=== PATIENT | female | born 1985 | race Caucasian/White ===

== ENCOUNTER 2018-06-27 22:20 | Emergency (ER) | payer SELFPAY ==
[~2018-06-27] VITALS: Ht 172.7 cm; Wt 77.1 kg
[2018-06-27 22:25] VITALS: BP 132/62
[2018-06-27 22:59] LABS: BASO % 0 % (0-3); EOS % 0 % (0-3); HEMATOCRIT 47.1 % (36.0-47.0); LYMPH # 0.9 x10^3/uL (1.0-4.8); LYMPH % 5 % (24-48); MEAN CORPUSCULAR HEMOGLOBIN 28 pg (25-35); MEAN CORPUSCULAR HGB CONC 34 g/dL (31-37); MEAN CORPUSCULAR VOLUME 83 fL (79-100); MONO # 1.2 x10^3/uL (0.0-1.1); MONO % 6 % (0-9); NEUT # 17.1 x10^3uL (1.8-7.7); NEUT % 89 % (31-73); PLATELET COUNT 382 x10^3/uL (140-400); RED BLOOD COUNT 5.65 x10^6/uL (3.50-5.40); WHITE BLOOD COUNT 19.2 x10^3/uL (4.0-11.0)
[2018-06-27 23:23] LABS: ALBUMIN 3.8 g/dL (3.4-5.0); CALCIUM 8.8 mg/dL (8.5-10.1); CREATININE 0.8 mg/dL (0.6-1.0); GFR 83.7; MAGNESIUM 1.4 mg/dL (1.8-2.4); TOTAL BILIRUBIN 0.5 mg/dL (0.2-1.0); TOTAL PROTEIN 7.8 g/dL (6.4-8.2)
[2018-06-27 23:25] LABS: POTASSIUM 1.8 mmol/L (3.5-5.1)
[2018-06-27] MEDS ORDERED: IV NORMAL SALINE 1000ML BAG 1,000 ML IV ONE (23:30)
[2018-06-27] MEDS ORDERED: PROCHLORPERAZINE 10 MG/2 ML VIAL. IV ONE (23:30)
[2018-06-27 23:38] LABS: % BANDS 6 % (0-9); % LYMPHS 7 % (24-48); % MONOS 9 % (0-10); % SEGS 78 % (35-66); PLT ESTIMATE ADEQUATE (ADEQUATE)
--- NOTE | 2018-06-27 23:45 | PHYS DOC ---
Past Medical History Additional Past Medical Histor: hyookalemia, seizures from low potassium Alcohol Use: Rarely Drug Use: None Adult General Chief Complaint Chief Complaint: NAUSEA/VOMITING/DIARRHA HPI HPI Patient is a 32 year old female who presents to the emergency room via EMS with complaints of nasal congestion for a week. Patient states that today she started to have nausea, vomiting, and diarrhea. Patient states that she has had at least 12 episodes of vomiting at least 6 episodes of diarrhea today. Patient states she has a history of hypokalemia and that she has had seizures because her potassium has been to her before. Patient denies any seizure activity today. She denies any fever, cough, shortness of breath, dysuria, or increased urinary frequency. Patient states that she has some epigastric pain at this time. Patient was given an IV with 4 mg of Zofran and some normal saline prior to arrival. She currently rates her pain a 10 out of 10 on the pain scale and states that there are no aggravating or alleviating factors. Review of Systems Review of Systems Constitutional: Denies fever or chills [] Eyes: Denies change in visual acuity, redness, or eye pain [] HENT: Denies ear pain or sore throat, see history of present illness Respiratory: Denies cough or shortness of breath [] Cardiovascular: No additional information not addressed in HPI [] GI: See history of present illness : Denies dysuria or hematuria [] Musculoskeletal: Denies back pain or joint pain [] Integument: Denies rash or skin lesions [] Neurologic: Denies headache, focal weakness or sensory changes [] Endocrine: Denies polyuria or polydipsia [] Current Medications Current Medications Current Medications Medications (Trade) Dose Ordered Sig/Alyssa Start Time Stop Time Status Last Admin Dose Admin Magnesium Sulfate 50 ml @ 25 mls/hr 1X ONCE 06/28/18 00:00 06/28/18 00:58 DC Prochlorperazine Edisylate (Compazine) 10 mg 1X ONCE 06/27/18 23:30 06/27/18 23:31 DC 06/27/18 23:45 10 MG Sodium Chloride 1,000 ml @ 1,000 mls/hr 1X ONCE 06/27/18 23:30 06/28/18 00:29 DC 06/27/18 23:44 1,000 MLS/HR Allergies Allergies Allergies Coded Allergies Type Severity Reaction Last Updated Verified ibuprofen Allergy Severe 06/27/18 No Physical Exam Physical Exam Constitutional: Well developed, well nourished, no acute distress, non-toxic appearance. [] HENT: Normocephalic, atraumatic, bilateral external ears normal, oropharynx moist, no oral exudates, nose normal. [] Eyes: conjunctiva normal, no discharge. [] Neck: Normal range of motion, no stridor. [] Cardiovascular:Heart rate regular rhythm, no murmur [] Lungs & Thorax: Bilateral breath sounds clear to auscultation [] Abdomen: Bowel sounds normal, soft, epigastric TTP, no rebound, no guarding, no masses, no pulsatile masses. [] Skin: Warm, dry, no erythema, no rash. [] Extremities: No cyanosis, no clubbing, ROM intact, no edema. [] Neurologic: Alert and oriented X 3, normal motor function, normal sensory function, no focal deficits noted. [] Psychologic: Affect normal, judgement normal, mood normal. [] Current Patient Data Vital Signs Vital Signs Date Time Temp Pulse Resp B/P (MAP) Pulse Ox O2 Delivery O2 Flow Rate FiO2 06/27/18 22:25 97.6 115 24 132/62 (85) 100 Room Air 97.6 Lab Values Laboratory Tests Test 06/27/18 22:50 White Blood Count 19.2 x10^3/uL (4.0-11.0) H Red Blood Count 5.65 x10^6/uL (3.50-5.40) H Hemoglobin 16.0 g/dL (12.0-15.5) H Hematocrit 47.1 % (36.0-47.0) H Mean Corpuscular Volume 83 fL (79-100) Mean Corpuscular Hemoglobin 28 pg (25-35) Mean Corpuscular Hemoglobin Concent 34 g/dL (31-37) Red Cell Distribution Width 13.0 % (11.5-14.5) Platelet Count 382 x10^3/uL (140-400) Neutrophils (%) (Auto) 89 % (31-73) H Lymphocytes (%) (Auto) 5 % (24-48) L Monocytes (%) (Auto) 6 % (0-9) Eosinophils (%) (Auto) 0 % (0-3) Basophils (%) (Auto) 0 % (0-3) Neutrophils # (Auto) 17.1 x10^3uL (1.8-7.7) H Lymphocytes # (Auto) 0.9 x10^3/uL (1.0-4.8) L Monocytes # (Auto) 1.2 x10^3/uL (0.0-1.1) H Eosinophils # (Auto) 0.0 x10^3/uL (0.0-0.7) Basophils # (Auto) 0.0 x10^3/uL (0.0-0.2) Segmented Neutrophils % 78 % (35-66) H Band Neutrophils % 6 % (0-9) Lymphocytes % 7 % (24-48) L Monocytes % 9 % (0-10) Platelet Estimate Adequate (ADEQUATE) Sodium Level 140 mmol/L (136-145) Potassium Level 1.8 mmol/L (3.5-5.1) *L Chloride Level 97 mmol/L (98-107) L Carbon Dioxide Level 22 mmol/L (21-32) Anion Gap 21 (6-14) H Blood Urea Nitrogen 18 mg/dL (7-20) Creatinine 0.8 mg/dL (0.6-1.0) Estimated GFR (Cockcroft-Gault) 83.7 BUN/Creatinine Ratio 23 (6-20) H Glucose Level 143 mg/dL (70-99) H Calcium Level 8.8 mg/dL (8.5-10.1) Magnesium Level 1.4 mg/dL (1.8-2.4) L Total Bilirubin 0.5 mg/dL (0.2-1.0) Aspartate Amino Transferase (AST) 17 U/L (15-37) Alanine Aminotransferase (ALT) 23 U/L (14-59) Alkaline Phosphatase 65 U/L (46-116) Total Protein 7.8 g/dL (6.4-8.2) Albumin 3.8 g/dL (3.4-5.0) Albumin/Globulin Ratio 1.0 (1.0-1.7) Laboratory Tests 06/27/18 22:50 Laboratory Tests 06/27/18 22:50 EKG EKG [] Radiology/Procedures Radiology/Procedures [] Course & Med Decision Making Course & Med Decision Making Pertinent Labs and Imaging studies reviewed. (See chart for details) 0008- patient refused to be admitted to hospital for treatment of hypokalemia, nausea, vomiting, and diarrhea. Benefits and risks including cardiac arrhythmia and were discussed with patient who verbalized an understanding and states that she will take her prescription potassium and magnesium at home. [] Dragon Disclaimer Dragon Disclaimer This electronic medical record was generated, in whole or in part, using a voice recognition dictation system. Departure Departure Impression: Primary Impression: Left against medical advice Disposition: 07 AGAINST MEDICAL ADVICE Condition: STABLE Referrals: UNKNOWN PCP NAME (PCP) ERICA BUENO APRN Jun 27, 2018 23:45
[2018-06-28] MEDS ORDERED: MAGNESIUM SULFATE 2GM 50 ML IV ONE
[2018-06-28] MEDS ORDERED: POT25TAB PO (06:16)
== END 2018-06-28 00:10 | disposition left against medical advice (07) ==
LOC: ER 22:20
DX: R11.2 Nausea with vomiting, unspecified (principal); R10.13 Epigastric pain; R09.81 Nasal congestion; R19.7 Diarrhea, unspecified; Z88.6 Allergy status to analgesic agent
CPT/HCPCS: 36415; 80053; 83735; 85007; 85025; 96361; 96374; 99283; J0780; J7030; 99284

== ENCOUNTER 2019-03-05 13:06 | Inpatient (IN) | payer OTHER ==
[~2019-03-05] VITALS: Ht 172.7 cm; Wt 80.7 kg
[2019-03-05] VITALS (8 sets, daily range): BP systolic 94–108; BP diastolic 36–59
[~2019-03-05 13:06] MED LIST: POT25TAB PO
[2019-03-05] MEDS ORDERED: IV 1/2 NORMAL SALINE 1,000 ML IV SCH (15:04)
[2019-03-05] MEDS ORDERED: ACETAMINOPHEN 325 MG TABLET. PO PRN (15:15)
[2019-03-05] MEDS ORDERED: ZOLPIDEM 5 MG TABLET. PO PRN (15:15)
[2019-03-05] MEDS ORDERED: PROCHLORPERAZINE 10 MG/2 ML VIAL. IV PRN ×2 (15:15→16:15)
[2019-03-05] MEDS ORDERED: MORPHINE SULFATE 2 MG/ML VIAL. IV PRN ×2 (15:15→16:15)
--- NOTE | 2019-03-05 15:29 | PDOC1 ---
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 WBC 12,3, nausea but no emesis or diarrhea or fevers, K 3,2. Otherwise healthy not on blood thinners She was woken up by abd pain, RLQ 2 AM> Dw Dr jonas today, keep NPO now Past Medical History Renal/: Other (GItelman syndrome) Past Surgical History Past Surgical History: Other (breast augmentation sx) Social History Smoke: No ALCOHOL: none Drugs: None Current Medications Current Medications Current Medications Sodium Chloride 1,000 ml @ 100 mls/hr Q10H IV Last administered on 03/05/19at 15:04; Start 03/05/19 at 15:04 Ondansetron HCl (Zofran) 4 mg PRN Q6HRS PRN IV NAUSEA/VOMITING; Start 03/05/19 at 15:15 Prochlorperazine Edisylate (Compazine) 10 mg PRN Q6HRS PRN IV NAUSEA/VOMITING; Start 03/05/19 at 15:15 Oxycodone HCl (Roxicodone) 5 mg PRN Q3HRS PRN PO BREAKTHROUGH PAIN; Start 03/05/19 at 15:15 Morphine Sulfate (Morphine Sulfate) 2 mg PRN Q2HR PRN IV PAIN; Start 03/05/19 at 15:15 Acetaminophen (Tylenol) 650 mg PRN Q6HRS PRN PO Headaches, Temp > 101.5F; Start 03/05/19 at 15:15 Zolpidem Tartrate (Ambien) 5 mg PRN QHS PRN PO INSOMNIA; Start 03/05/19 at 15:15 Active Scripts Active Reported Potassium Cl 25 Meq Tab Eff (Pot Chloride/Pot Bicarb/Cit Ac) 25 Meq Tablet.eff 40 Meq PO TID Allergies Allergies: Coded Allergies: ibuprofen (Unverified Allergy, Severe, , 06/27/18) "I will ." per patient ROS Review of System as per hpi, rest 14 pt neg Physical Exam General: Alert, Oriented X3, Cooperative, No acute distress HEENT: Atraumatic, PERRLA, EOMI Lungs: Clear to auscultation, Normal air movement Heart: S1S2, RRR, no thrills, no rubs, no gallops, no murmurs Cardiovascular: S1, S2 Abdomen: Soft, Other (tenderness RLQ area, positive psoas, obturator) Rectal Exam: not examined PELVIC: Nml ext genitalia Extremities: No clubbing, No cyanosis, No edema, Normal pulses, No tenderness/swelling Skin: No rashes, No breakdown, No significant lesion Neuro: Normal gait, Normal speech, Strength at 5/5 X4 ext, Normal tone, Sensation intact, Cranial nerves 3-12 NL, Reflexes 2+ Psych/Mental Status: Mental status NL, Mood NL Vitals Vitals Vital Signs Date Time Temp Pulse Resp B/P (MAP) Pulse Ox O2 Delivery O2 Flow Rate FiO2 03/05/19 14:45 98.4 63 20 97/46 (63) 96 Room Air 98.4 VTE Prophylaxis Ordered VTE Prophylaxis Devices: Yes VTE Pharmacological Prophylaxi: Yes Assessment/Plan Assessment/Plan 1. Acute appy by CT and clinically 2. Gitelman syndrome with hypokalemia - on PO kcl 40 TID at home. she requests IV here while NPO PLAn: NPO< pain med, IVF PPI IV Kcl PO once post Op Dw Dr jonas LAbs dw RN at bedside ELYSE ESCOTO MD Mar 05, 2019 15:28
[2019-03-05] MEDS ORDERED: POTASSIUM CL 40MEQ D5-0.45NACL 1,000 ML IV SCH ×2 (15:30)
--- NOTE | 2019-03-05 15:33 | PDOC2 ---
CONSULT Date of Consult Date of Consult DATE: 03/05/19 TIME: 15:30 History of Present Illness Reason for Visit: 33 year old female reported to [facility] with RLQ pain starting earlier this am. The pain is nonradiating with no nausea or vomiting. Her evaluation there included a CT scan showing appendicitis. Past Medical History Past Medical History kidney disease Renal/: Other (GItelman syndrome) Past Surgical History Past Surgical History portacath, breast augmentation Past Surgical History: Other (breast augmentation sx) Social History No ALCOHOL: none Drugs: None Current Medications Current Medications Current Medications Sodium Chloride 1,000 ml @ 100 mls/hr Q10H IV Last administered on 03/05/19at 15:04; Start 03/05/19 at 15:04 Ondansetron HCl (Zofran) 4 mg PRN Q6HRS PRN IV NAUSEA/VOMITING; Start 03/05/19 at 15:15 Prochlorperazine Edisylate (Compazine) 10 mg PRN Q6HRS PRN IV NAUSEA/VOMITING; Start 03/05/19 at 15:15 Oxycodone HCl (Roxicodone) 5 mg PRN Q3HRS PRN PO BREAKTHROUGH PAIN; Start 03/05/19 at 15:15 Morphine Sulfate (Morphine Sulfate) 2 mg PRN Q2HR PRN IV PAIN; Start 03/05/19 at 15:15 Acetaminophen (Tylenol) 650 mg PRN Q6HRS PRN PO Headaches, Temp > 101.5F; Start 03/05/19 at 15:15 Zolpidem Tartrate (Ambien) 5 mg PRN QHS PRN PO INSOMNIA; Start 03/05/19 at 15:15 Potassium Chloride/Dextrose/ Sod Cl 1,000 ml @ 75 mls/hr [id number] IV ; Start 03/05/19 at 15:30; Status UNV Non-Formulary Medication (Pot Chloride/ Pot Bicarb/Cit Ac (Potassium Cl 25 Meq Tab Eff)) 40 meq TID PO ; Start 03/05/19 at 21:00; Status UNV Active Scripts Active Reported Potassium Cl 25 Meq Tab Eff (Pot Chloride/Pot Bicarb/Cit Ac) 25 Meq Tablet.eff 40 Meq PO TID Allergies Allergies: Coded Allergies: ibuprofen (Unverified Allergy, Severe, , 06/27/18) "I will ." per patient ROS General: No: Chills, Night Sweats, Fatigue, Malaise, Appetite, Other HEENT: No: Heacaches, Visual Changes, Hearing change, Nasal congestion, Nasal discharge, Oral lesions, Sinus pain, Sore Throat, Epistaxis, Sneezing, Snoring, Tinnitus, Vertigo, Vocal changes, Other ENDOCRINE: No: Breast Changes, Galactorrhea, Hair Pattern Changes, Hot Flashes, Malaise/lethargy, Mood Swings, Palpitations, Polydipsia/polyuria, Skin Changes, Temperature Intolerance, Unexpected Weight Changes, Other Respiratory: No: Cough, Hemoptysis, Orthopnea, Pleuritic Pain, Shortness of breath, SOB with excertion, Sputum Changes, Stridor, Tachypnea, Wheezing, Other Cardiovascular: No Chest Pain, No Palpitations, No Orthopnea, No Paroxysmal Noc. Dyspnea, No Edema, No Lt Headedness, No Other Gastrointestinal: Yes Abdominal Pain Musculoskeletal: No Gait Disturbance, No Joint Pain, No Joint Stiffness, No Joint Swelling, No Muscle Pain, No Muscular Weakness, No Pain In:, No Swelling In:, No Other Neurological: No Behavorial Changes, No Bowel/Bladder ControlChng, No Confusion, No Dizziness, No Gait Disturbance, No Headaches, No Impaired Coord/balance, No Memory Loss, No Numbness/Tingling, No Seizures, No Speech Problems, No Tremors, No Visual Changes, No Weakness, No Other Skin: No Dry Skin, No Eczema, No Hair Changes, No Lumps, No Mole Changes, No Mottling, No Nail Changes, No Pruritus, No Rash, No Skin Lesion Changes, No Other, No Acne Physical Exam General: Alert, Oriented X3, Cooperative HEENT: Atraumatic, PERRLA Lungs: Clear to auscultation Heart: Regular rate Abdomen: Soft (tender RLQ) Extremities: No clubbing, No cyanosis Skin: No rashes Neuro: Normal gait Psych/Mental Status: Mental status NL Vitals VITALS Vital Signs Date Time Temp Pulse Resp B/P (MAP) Pulse Ox O2 Delivery O2 Flow Rate FiO2 03/05/19 14:45 98.4 63 20 97/46 (63) 96 Room Air 98.4 Assessment/Plan Assessment/Plan RLQ pain, suspect acute appendicitis, recommend lap appy. The details of surgery were discussed with the patient. She understands and would like to proceed. TU PERSAUD MD Mar 05, 2019 15:33
--- NOTE | 2019-03-05 15:42 | NUR ---
Patient requests to get flu shot before discharge.
[2019-03-05] MEDS ORDERED: FLU VAX QS 2019-20 (36MOS+)/PF 0.5 ML SYRINGE. VAX IM ONE (15:45)
[2019-03-05] MEDS: POTASSIUM CL 40MEQ D5-0.45NACL 1,000 ML IV SCH (15:50)
[2019-03-05] MEDS ORDERED: ONDANSETRON PF 4 MG/2 ML VIAL. ONE (16:01)
[2019-03-05] MEDS ORDERED: LIDOCAINE 2% PF 5 ML VIAL. ONE (16:02)
[2019-03-05] MEDS ORDERED: PROPOFOL 20 ML IV ONE ×2 (16:02→17:23)
[2019-03-05] MEDS ORDERED: IV RINGERS,LACTATED 1000ML 1,000 ML IV SCH (16:05)
[2019-03-05] MEDS ORDERED: ONDANSETRON PF 4 MG/2 ML VIAL. IV PRN (16:15)
[2019-03-05] MEDS ORDERED: HYDROmorphone 2 MG/ML VIAL IV PRN (16:15)
[2019-03-05] MEDS ORDERED: fentaNYL PF VIAL 100 MCG/2 ML VIAL IV PRN (16:15)
[2019-03-05] MEDS: ONDANSETRON PF 4 MG/2 ML VIAL. IV PRN (16:18)
[2019-03-05] MEDS ORDERED: BUPIVACAINE MPF 0.5% 30 ML VIAL. ONE ×2 (16:24→18:31)
[2019-03-05] MEDS ORDERED: SUCCINYLCHOLINE 200 MG/10 ML VIAL. ONE (16:26)
[2019-03-05] MEDS ORDERED: ROCURONIUM 50 MG/5 ML VIAL. ONE (16:59)
[2019-03-05] MEDS ORDERED: fentaNYL PF VIAL 100 MCG/2 ML VIAL ONE (17:14)
[2019-03-05] MEDS ORDERED: PHENYLEPHRINE in 0.9% NACL PF 1 MG/10 ML SYRINGE. IV ONE (17:23)
[2019-03-05] MEDS ORDERED: NEOSTIGMINE METHYLSULFATE 5 MG/5 ML SYRINGE. ONE (17:23)
[2019-03-05] MEDS ORDERED: GLYCOPYRROLATE 1 MG/5 ML VIAL. ONE (17:23)
[2019-03-05] MEDS ORDERED: SEVOFLURANE 61 TO 120 MINUTES. IH ONE (17:47)
[2019-03-05] MEDS ORDERED: oxyCODONE/APAP 5/325 1 TAB TABLET PO PRN (18:00)
--- NOTE | 2019-03-05 18:01 | PDOC4 ---
Operative Note Operative Note Preoperative Diagnosis: Acute Appendicitis Postoperative Diagnosis: Same Procedure: Laparoscopic appendectomy Surgeon: Amadou Anesthesia: Gen. EBL: 20 mL Specimen: Appendix to pathology Drains: None Complications: None Indication: The patient is a 33-year-old female who reported to the emergency department with abdominal pain. The evaluation is consistent with acute appendicitis. The patient was offered surgical treatment with a laparoscopic appendectomy. The risks of surgery were discussed which include bleeding, infection, visceral injury, pain, anesthetic risk, potential need for additional surgery or procedure. The patient understands and would like to proceed. Description: The patient was taken to the operating room and placed supine on the operating table. Gen. anesthesia was performed. The abdomen was prepped with ChloraPrep and draped in a standard surgical manner. A supraumbilical incision was made through which a veress needle was inserted and a pneumoperitoneum was created. A visualized 5 mm trocar was inserted and the laparoscope was intr oduced. In the left lower quadrant a 5 mm trocar was inserted. In the suprapubic region a 12 mm trocar was inserted. The appendix was identified and located in a retrocecal position. The distal portion of the appendix appeared inflamed consistent with acute appendicitis. There was no clear evidence of perforation or periappendiceal abscess. The mesoappendix was bluntly from the appendix. The mesoappendix was controlled using several clips and it was divided. The appendix was then amputated off the cecum using an Endo NADJA 45 stapling device. The appendix was then placed in an endoscopic bag and extracted at the suprapubic incision site. The fascia there was closed with 0 Vicryl and infiltrated with half percent Marcaine with epinephrine. The RLQ was visualized and the staple line appeared well intact and hemostasis was good. No other abnormalities were identified grossly. The remaining ports were removed and the pneumoperitoneum was relieved. The skin at all incision sites was closed with 4- 0 Monocryl. Steri-Strips and dressings were applied. The patient tolerated the procedure well and was sent to the recovery room in stable condition. At the end of the case all counts were correct. TU PERSAUD MD Mar 05, 2019 18:01
[2019-03-05] MEDS: fentaNYL PF VIAL 100 MCG/2 ML VIAL IV PRN ×2 (18:11→18:27)
[2019-03-05] MEDS ORDERED: DEXAMETHASONE SOD PHOS 20 MG/5 ML VIAL. ONE (18:31)
[2019-03-05] MEDS ORDERED: LIDOCAINE 1% PF 2 ML VIAL. ONE (18:31)
--- NOTE | 2019-03-05 19:15 | NUR ---
Patient arrived to unit via bed from PACU. Patient A&O, afebrile, VSS with moderate c/o pain upon return to unit. Patient eager to eat, this nurse explained current full liquid diet to patient and plans to advance diet as tolerated, patient verbalized understanding. Patient now resting in bed, call light within reach and family at bedside, will continue to monitor.
[2019-03-05] MEDS: POTASSIUM CHLORIDE 20 MEQ TABLET.ER. PO SCH (20:10)
[2019-03-05] MEDS: oxyCODONE IR 5 MG TABLET PO PRN (20:11)
[2019-03-05] MEDS: oxyCODONE/APAP 5/325 1 TAB TABLET PO PRN (22:18)
[2019-03-06 03:00] VITALS: BP 86/46
[2019-03-06 05:14] LABS: PROTHROMBIN TIME PATIENT 13.8 SEC (11.7-14.0)
[2019-03-06 05:18] LABS: BASO % 0 % (0-3); EOS % 0 % (0-3); HEMATOCRIT 39.3 % (36.0-47.0); HEMOGLOBIN 14.2 g/dL (12.0-15.5); LYMPH # 0.8 x10^3/uL (1.0-4.8); LYMPH % 8 % (24-48); MEAN CORPUSCULAR HEMOGLOBIN 31 pg (25-35); MEAN CORPUSCULAR HGB CONC 36 g/dL (31-37); MEAN CORPUSCULAR VOLUME 84 fL (79-100); MONO # 0.3 x10^3/uL (0.0-1.1); MONO % 3 % (0-9); NEUT # 9.4 x10^3/uL (1.8-7.7); NEUT % 89 % (31-73); PLATELET COUNT 325 x10^3/uL (140-400); RED BLOOD COUNT 4.65 x10^6/uL (3.50-5.40); RED CELL DISTRIBUTION WIDTH 12.8 % (11.5-14.5); WHITE BLOOD COUNT 10.6 x10^3/uL (4.0-11.0)
[2019-03-06 05:22] LABS: CREATININE 0.6 mg/dL (0.6-1.0); GFR 115.9
[2019-03-06 05:26] LABS: POTASSIUM 2.4 mmol/L (3.5-5.1)
[2019-03-06] MEDS ORDERED: POTASSIUM CHLORIDE 20 MEQ TABLET.ER. PO ONE ×3 (05:45→16:00)
[2019-03-06] MEDS: POTASSIUM CL 40MEQ D5-0.45NACL 1,000 ML IV SCH (06:10)
[2019-03-06 07:00] VITALS: BP 86/36
[2019-03-06] MEDS: POTASSIUM CHLORIDE 20 MEQ TABLET.ER. PO SCH ×3 (07:38→15:46)
[2019-03-06] MEDS: oxyCODONE/APAP 5/325 1 TAB TABLET PO PRN ×3 (07:44→17:40)
[2019-03-06] MEDS: ONDANSETRON PF 4 MG/2 ML VIAL. IV PRN ×2 (07:46→14:38)
--- NOTE | 2019-03-06 09:01 | PDOC ---
LUIS GAMEZ [employer] 03/06/19 0901: SURGICAL PROGRESS NOTE Subjective tolerating diet urinating pain managed Vital Signs Vital Signs Date Time Temp Pulse Resp B/P (MAP) Pulse Ox O2 Delivery O2 Flow Rate FiO2 03/06/19 07:44 16 Room Air 03/06/19 07:00 98.0 20 86/36 (53) 94 98.0 03/05/19 19:35 98.0 I&O Intake and Output 03/06/19 07:00 Intake Total 2010 ml Output Total 70 ml Balance 1940 ml Intake Oral 480 ml IV Total 1530 ml Output Urine Total 50 ml Estimated Blood Loss 20 ml # Voids 2 General: Alert, Oriented X3, Cooperative, No acute distress Abdomen: Soft, Other (lap dressings dry ) Labs Laboratory Tests Test 03/06/19 04:00 White Blood Count 10.6 x10^3/uL (4.0-11.0) Red Blood Count 4.65 x10^6/uL (3.50-5.40) Hemoglobin 14.2 g/dL (12.0-15.5) Hematocrit 39.3 % (36.0-47.0) Mean Corpuscular Volume 84 fL (79-100) Mean Corpuscular Hemoglobin 31 pg (25-35) Mean Corpuscular Hemoglobin Concent 36 g/dL (31-37) Red Cell Distribution Width 12.8 % (11.5-14.5) Platelet Count 325 x10^3/uL (140-400) Neutrophils (%) (Auto) 89 % (31-73) Lymphocytes (%) (Auto) 8 % (24-48) Monocytes (%) (Auto) 3 % (0-9) Eosinophils (%) (Auto) 0 % (0-3) Basophils (%) (Auto) 0 % (0-3) Neutrophils # (Auto) 9.4 x10^3/uL (1.8-7.7) Lymphocytes # (Auto) 0.8 x10^3/uL (1.0-4.8) Monocytes # (Auto) 0.3 x10^3/uL (0.0-1.1) Eosinophils # (Auto) 0.0 x10^3/uL (0.0-0.7) Basophils # (Auto) 0.0 x10^3/uL (0.0-0.2) Prothrombin Time 13.8 SEC (11.7-14.0) Prothromb Time International Ratio 1.1 (0.8-1.1) Sodium Level 141 mmol/L (136-145) Potassium Level 2.4 mmol/L (3.5-5.1) Chloride Level 101 mmol/L (98-107) Carbon Dioxide Level 31 mmol/L (21-32) Anion Gap 9 (6-14) Blood Urea Nitrogen 7 mg/dL (7-20) Creatinine 0.6 mg/dL (0.6-1.0) Estimated GFR (Cockcroft-Gault) 115.9 Glucose Level 161 mg/dL (70-99) Calcium Level 9.0 mg/dL (8.5-10.1) Laboratory Tests Test 03/06/19 04:00 White Blood Count 10.6 x10^3/uL (4.0-11.0) Red Blood Count 4.65 x10^6/uL (3.50-5.40) Hemoglobin 14.2 g/dL (12.0-15.5) Hematocrit 39.3 % (36.0-47.0) Mean Corpuscular Volume 84 fL (79-100) Mean Corpuscular Hemoglobin 31 pg (25-35) Mean Corpuscular Hemoglobin Concent 36 g/dL (31-37) Red Cell Distribution Width 12.8 % (11.5-14.5) Platelet Count 325 x10^3/uL (140-400) Neutrophils (%) (Auto) 89 % (31-73) Lymphocytes (%) (Auto) 8 % (24-48) Monocytes (%) (Auto) 3 % (0-9) Eosinophils (%) (Auto) 0 % (0-3) Basophils (%) (Auto) 0 % (0-3) Neutrophils # (Auto) 9.4 x10^3/uL (1.8-7.7) Lymphocytes # (Auto) 0.8 x10^3/uL (1.0-4.8) Monocytes # (Auto) 0.3 x10^3/uL (0.0-1.1) Eosinophils # (Auto) 0.0 x10^3/uL (0.0-0.7) Basophils # (Auto) 0.0 x10^3/uL (0.0-0.2) Prothrombin Time 13.8 SEC (11.7-14.0) Prothromb Time International Ratio 1.1 (0.8-1.1) Sodium Level 141 mmol/L (136-145) Potassium Level 2.4 mmol/L (3.5-5.1) Chloride Level 101 mmol/L (98-107) Carbon Dioxide Level 31 mmol/L (21-32) Anion Gap 9 (6-14) Blood Urea Nitrogen 7 mg/dL (7-20) Creatinine 0.6 mg/dL (0.6-1.0) Estimated GFR (Cockcroft-Gault) 115.9 Glucose Level 161 mg/dL (70-99) Calcium Level 9.0 mg/dL (8.5-10.1) Problem List s/p appy ok to dc home when medically stable--K 2.4 this AM--as per [facility] pain script electronically sent TU PERSAUD MD 03/06/19 0923: SURGICAL PROGRESS NOTE Assessment/Plan Agree with above LUIS GAMEZ [employer] Mar 06, 2019 09:01 TU PERSAUD MD Mar 06, 2019 09:23
[2019-03-06] MEDS ORDERED: OXYC1TAB15 PO (09:03)
--- NOTE | 2019-03-06 09:54 | PDOC ---
PROGRESS NOTES History of Present Illness History of Present Illness VTE Prophylaxis Ordered VTE Prophylaxis Devices: Yes VTE Pharmacological Prophylaxi: Yes Assessment/Plan Assessment/Plan 1. 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 3. SEVERE Hypokalemia PLAn: reg diet < pain med, IVF PPI IV Kcl PO once post Op oral k 40 meq now 28 min pt exam, chart review, > 50% of time spent with exam, chart review, pt care coordination Vitals Vitals Vital Signs Date Time Temp Pulse Resp B/P (MAP) Pulse Ox O2 Delivery O2 Flow Rate FiO2 03/06/19 09:01 16 Room Air 03/06/19 07:00 98.0 20 86/36 (53) 94 98.0 03/05/19 19:35 98.0 Physical Exam General: Alert, Oriented X3, Cooperative, No acute distress Heart: Regular rate, Normal S1, No murmurs Abdomen: Soft, Other (lap dressings dry ) Extremities: No clubbing, No cyanosis Skin: No rashes Labs LABS Laboratory Tests Test 03/06/19 04:00 White Blood Count 10.6 x10^3/uL (4.0-11.0) Red Blood Count 4.65 x10^6/uL (3.50-5.40) Hemoglobin 14.2 g/dL (12.0-15.5) Hematocrit 39.3 % (36.0-47.0) Mean Corpuscular Volume 84 fL (79-100) Mean Corpuscular Hemoglobin 31 pg (25-35) Mean Corpuscular Hemoglobin Concent 36 g/dL (31-37) Red Cell Distribution Width 12.8 % (11.5-14.5) Platelet Count 325 x10^3/uL (140-400) Neutrophils (%) (Auto) 89 % (31-73) Lymphocytes (%) (Auto) 8 % (24-48) Monocytes (%) (Auto) 3 % (0-9) Eosinophils (%) (Auto) 0 % (0-3) Basophils (%) (Auto) 0 % (0-3) Neutrophils # (Auto) 9.4 x10^3/uL (1.8-7.7) Lymphocytes # (Auto) 0.8 x10^3/uL (1.0-4.8) Monocytes # (Auto) 0.3 x10^3/uL (0.0-1.1) Eosinophils # (Auto) 0.0 x10^3/uL (0.0-0.7) Basophils # (Auto) 0.0 x10^3/uL (0.0-0.2) Prothrombin Time 13.8 SEC (11.7-14.0) Prothromb Time International Ratio 1.1 (0.8-1.1) Sodium Level 141 mmol/L (136-145) Potassium Level 2.4 mmol/L (3.5-5.1) Chloride Level 101 mmol/L (98-107) Carbon Dioxide Level 31 mmol/L (21-32) Anion Gap 9 (6-14) Blood Urea Nitrogen 7 mg/dL (7-20) Creatinine 0.6 mg/dL (0.6-1.0) Estimated GFR (Cockcroft-Gault) 115.9 Glucose Level 161 mg/dL (70-99) Calcium Level 9.0 mg/dL (8.5-10.1) Comment Review of Relevant I have reviewed the following items neida (where applicable) has been applied. Labs Laboratory Tests Test 03/06/19 04:00 White Blood Count 10.6 x10^3/uL (4.0-11.0) Red Blood Count 4.65 x10^6/uL (3.50-5.40) Hemoglobin 14.2 g/dL (12.0-15.5) Hematocrit 39.3 % (36.0-47.0) Mean Corpuscular Volume 84 fL (79-100) Mean Corpuscular Hemoglobin 31 pg (25-35) Mean Corpuscular Hemoglobin Concent 36 g/dL (31-37) Red Cell Distribution Width 12.8 % (11.5-14.5) Platelet Count 325 x10^3/uL (140-400) Neutrophils (%) (Auto) 89 % (31-73) Lymphocytes (%) (Auto) 8 % (24-48) Monocytes (%) (Auto) 3 % (0-9) Eosinophils (%) (Auto) 0 % (0-3) Basophils (%) (Auto) 0 % (0-3) Neutrophils # (Auto) 9.4 x10^3/uL (1.8-7.7) Lymphocytes # (Auto) 0.8 x10^3/uL (1.0-4.8) Monocytes # (Auto) 0.3 x10^3/uL (0.0-1.1) Eosinophils # (Auto) 0.0 x10^3/uL (0.0-0.7) Basophils # (Auto) 0.0 x10^3/uL (0.0-0.2) Prothrombin Time 13.8 SEC (11.7-14.0) Prothromb Time International Ratio 1.1 (0.8-1.1) Sodium Level 141 mmol/L (136-145) Potassium Level 2.4 mmol/L (3.5-5.1) Chloride Level 101 mmol/L (98-107) Carbon Dioxide Level 31 mmol/L (21-32) Anion Gap 9 (6-14) Blood Urea Nitrogen 7 mg/dL (7-20) Creatinine 0.6 mg/dL (0.6-1.0) Estimated GFR (Cockcroft-Gault) 115.9 Glucose Level 161 mg/dL (70-99) Calcium Level 9.0 mg/dL (8.5-10.1) Laboratory Tests Test 03/06/19 04:00 White Blood Count 10.6 x10^3/uL (4.0-11.0) Red Blood Count 4.65 x10^6/uL (3.50-5.40) Hemoglobin 14.2 g/dL (12.0-15.5) Hematocrit 39.3 % (36.0-47.0) Mean Corpuscular Volume 84 fL (79-100) Mean Corpuscular Hemoglobin 31 pg (25-35) Mean Corpuscular Hemoglobin Concent 36 g/dL (31-37) Red Cell Distribution Width 12.8 % (11.5-14.5) Platelet Count 325 x10^3/uL (140-400) Neutrophils (%) (Auto) 89 % (31-73) Lymphocytes (%) (Auto) 8 % (24-48) Monocytes (%) (Auto) 3 % (0-9) Eosinophils (%) (Auto) 0 % (0-3) Basophils (%) (Auto) 0 % (0-3) Neutrophils # (Auto) 9.4 x10^3/uL (1.8-7.7) Lymphocytes # (Auto) 0.8 x10^3/uL (1.0-4.8) Monocytes # (Auto) 0.3 x10^3/uL (0.0-1.1) Eosinophils # (Auto) 0.0 x10^3/uL (0.0-0.7) Basophils # (Auto) 0.0 x10^3/uL (0.0-0.2) Prothrombin Time 13.8 SEC (11.7-14.0) Prothromb Time International Ratio 1.1 (0.8-1.1) Sodium Level 141 mmol/L (136-145) Potassium Level 2.4 mmol/L (3.5-5.1) Chloride Level 101 mmol/L (98-107) Carbon Dioxide Level 31 mmol/L (21-32) Anion Gap 9 (6-14) Blood Urea Nitrogen 7 mg/dL (7-20) Creatinine 0.6 mg/dL (0.6-1.0) Estimated GFR (Cockcroft-Gault) 115.9 Glucose Level 161 mg/dL (70-99) Calcium Level 9.0 mg/dL (8.5-10.1) Medications Current Medications Sodium Chloride 1,000 ml @ 100 mls/hr Q10H IV Last administered on 03/05/19at 15:04; Start 03/05/19 at 15:04; Stop 03/05/19 at 15:31; Status DC Ondansetron HCl (Zofran) 4 mg PRN Q6HRS PRN IV NAUSEA/VOMITING Last administered on 03/06/19at 07:46; Start 03/05/19 at 15:15 Prochlorperazine Edisylate (Compazine) 10 mg PRN Q6HRS PRN IV NAUSEA/VOMITING; Start 03/05/19 at 15:15 Oxycodone HCl (Roxicodone) 5 mg PRN Q3HRS PRN PO BREAKTHROUGH PAIN Last administered on 03/05/19at 20:11; Start 03/05/19 at 15:15 Morphine Sulfate (Morphine Sulfate) 2 mg PRN Q2HR PRN IV PAIN Last administered on 03/05/19at 15:52; Start 03/05/19 at 15:15 Acetaminophen (Tylenol) 650 mg PRN Q6HRS PRN PO Headaches, Temp > 101.5F; Start 03/05/19 at 15:15 Zolpidem Tartrate (Ambien) 5 mg PRN QHS PRN PO INSOMNIA; Start 03/05/19 at 15:15 Potassium Chloride/Dextrose/ Sod Cl 1,000 ml @ 75 mls/hr [id number] IV ; Start 03/05/19 at 15:30; Stop 03/05/19 at 15:33; Status DC Potassium Chloride (Klor-Con) 40 meq BIDWMEALS PO Last administered on 03/06/19at 07:38; Start 03/05/19 at 17:00 Potassium Chloride/Dextrose/ Sod Cl 1,000 ml @ 75 mls/hr [id number] IV ; Start 03/05/19 at 15:30; Status UNV Potassium Chloride/Dextrose/ Sod Cl 1,000 ml @ 75 mls/hr [id number] IV Last administered on 03/06/19at 06:10; Start 03/05/19 at 16:00 Influenza Virus Vaccine Quadrival (Afluria Quad 2019-20 (3yr Up) Syringe) 0.5 ml ONCE ONCE VAX IM ; Start 03/05/19 at 15:45; Stop 03/05/19 at 15:46; Status DC Ondansetron HCl (Zofran) 4 mg STK-MED ONCE .ROUTE ; Start 03/05/19 at 16:01; Stop 03/05/19 at 16:02; Status DC Lidocaine HCl (Lidocaine Pf 2% Vial) 5 ml STK-MED ONCE .ROUTE ; Start 03/05/19 at 16:02; Stop 03/05/19 at 16:02; Status DC Propofol 20 ml @ As Directed STK-MED ONCE IV ; Start 03/05/19 at 16:02; Stop 03/05/19 at 16:02; Status DC Ondansetron HCl (Zofran) 4 mg PRN Q6HRS PRN IV NAUSEA/VOMITING; Start 03/05/19 at 16:15; Stop 03/06/19 at 16:14 Fentanyl Citrate (Fentanyl 2ml Vial) 25 mcg PRN Q5MIN PRN IV MILD PAIN 1-3 Last administered on 03/05/19at 18:27; Start 03/05/19 at 16:15; Stop 03/06/19 at 16:14 Fentanyl Citrate (Fentanyl 2ml Vial) 50 mcg PRN Q5MIN PRN IV MODERATE TO SEVERE PAIN; Start 03/05/19 at 16:15; Stop 03/06/19 at 16:14 Morphine Sulfate (Morphine Sulfate) 1 mg PRN Q10MIN PRN IV SEVERE PAIN 7-10; Start 03/05/19 at 16:15; Stop 03/06/19 at 16:14 Ringer's Solution 1,000 ml @ 30 mls/hr Q24H IV Last administered on 03/05/19at 16:47; Start 03/05/19 at 16:05; Stop 03/06/19 at 04:16; Status DC Hydromorphone HCl (Dilaudid) 0.5 mg PRN Q10MIN PRN IV SEV PAIN, Second choice; Start 03/05/19 at 16:15; Stop 03/06/19 at 16:14 Prochlorperazine Edisylate (Compazine) 5 mg PACU PRN PRN IV NAUSEA, MRX1 Last administered on 03/05/19at 18:14; Start 03/05/19 at 16:15; Stop 03/06/19 at 16:14 Bupivacaine HCl (Sensorcaine Mpf 0.5%) 30 ml STK-MED ONCE .ROUTE Last administered on 03/05/19at 17:50; Start 03/05/19 at 16:24; Stop 03/05/19 at 16:25; Status DC Succinylcholine Chloride (Anectine) 200 mg STK-MED ONCE .ROUTE ; Start 03/05/19 at 16:26; Stop 03/05/19 at 16:27; Status DC Rocuronium [place] (Zemuron) 50 mg STK-MED ONCE .ROUTE ; Start 03/05/19 at 16:59; Stop 03/05/19 at 17:00; Status DC Fentanyl Citrate (Fentanyl 2ml Vial) 100 mcg STK-MED ONCE .ROUTE ; Start 03/05/19 at 17:14; Stop 03/05/19 at 17:15; Status DC Neostigmine Methylsulfate (Neostigmine Methylsulfate) 5 mg STK-MED ONCE .ROUTE ; Start 03/05/19 at 17:23; Stop 03/05/19 at 17:23; Status DC Glycopyrrolate (Robinul) 1 mg STK-MED ONCE .ROUTE ; Start 03/05/19 at 17:23; Stop 03/05/19 at 17:23; Status DC Propofol 20 ml @ As Directed STK-MED ONCE IV ; Start 03/05/19 at 17:23; Stop 03/05/19 at 17:23; Status DC Phenylephrine HCl (PHENYLEPHRINE in 0.9% NACL PF) 1 mg STK-MED ONCE IV ; Start 03/05/19 at 17:23; Stop 03/05/19 at 17:23; Status DC Sevoflurane (Ultane) 60 ml STK-MED ONCE IH ; Start 03/05/19 at 17:47; Stop 03/05/19 at 17:48; Status DC Oxycodone/ Acetaminophen (Percocet 5/325) 1 tab PRN Q4HRS PRN PO MILD PAIN 1-3; Start 03/05/19 at 18:00 Oxycodone/ Acetaminophen (Percocet 5/325) 2 tab PRN Q4HRS PRN PO MODERATE PAIN, SEVERE PAIN Last administered on 03/06/19at 07:44; Start 03/05/19 at 18:15 Dexamethasone Sodium Phosphate (Decadron) 20 mg STK-MED ONCE .ROUTE ; Start 03/05/19 at 18:31; Stop 03/05/19 at 18:31; Status DC Bupivacaine HCl (Sensorcaine Mpf 0.5%) 30 ml STK-MED ONCE .ROUTE ; Start 03/05/19 at 18:31; Stop 03/05/19 at 18:32; Status DC Lidocaine HCl (Xylocaine-Mpf 1% 2ml Vial) 2 ml STK-MED ONCE .ROUTE ; Start 03/05/19 at 18:31; Stop 03/05/19 at 18:32; Status DC Potassium Chloride (Klor-Con) 40 meq 1X ONCE PO Last administered on 03/06/19at 06:06; Start 03/06/19 at 05:45; Stop 03/06/19 at 05:46; Status DC Active Scripts Active Percocet 5-325 Mg Tablet (Oxycodone/Acetaminophen) 1 Each Tablet 1 Tab PO PRN Q4HRS PRN Reported Potassium Cl 25 Meq Tab Eff (Pot Chloride/Pot Bicarb/Cit Ac) 25 Meq Tablet.eff 40 Meq PO TID Vitals/I & O Vital Sign - Last 24 Hours 03/05/19 03/05/19 03/05/19 03/05/19 14:45 14:50 15:52 16:30 Temp 98.4 98.4 98.4 98.4 Pulse 63 77 Resp 20 16 20 B/P (MAP) 97/46 (63) 102/50 Pulse Ox 96 100 O2 Delivery Room Air Room Air Room Air Room Air 03/05/19 03/05/19 03/05/19 03/05/19 18:03 18:11 18:18 18:27 Temp 97.8 97.8 97.8 97.8 Pulse 60 64 Resp 16 16 16 B/P (MAP) 89/45 100/42 Pulse Ox 100 100 95 95 O2 Delivery Room Air Room Air Room Air Room Air 03/05/19 03/05/19 03/05/19 03/05/19 18:33 18:48 18:48 19:02 Temp 98.8 98.8 Pulse 51 58 61 58 Resp 16 16 16 18 B/P (MAP) 94/36 97/49 87/37 93/52 Pulse Ox 99 96 97 96 O2 Delivery Nasal Cannula Room Air Room Air O2 Flow Rate 2 2 2 03/05/19 03/05/19 03/05/19 03/05/19 19:20 19:35 20:05 20:10 Temp 98.9 98.7 98.8 98.9 98.7 98.8 Pulse 61 65 76 Resp 18 18 18 B/P (MAP) 97/53 (68) 98/58 (71) 108/36 (60) Pulse Ox 96 95 O2 Delivery Room Air Room Air Room Air Room Air O2 Flow Rate 98.0 03/05/19 03/05/19 03/05/19 03/05/19 20:11 20:35 21:05 21:20 Temp 98.7 98.5 98.7 98.5 Pulse 70 60 Resp 18 20 20 14 B/P (MAP) 99/59 (72) 95/41 (59) Pulse Ox 95 95 O2 Delivery Room Air Room Air Room Air Room Air 03/05/19 03/05/19 03/05/19 03/05/19 21:35 22:18 23:13 23:20 Temp 98.5 98.2 98.5 98.2 Pulse 66 57 Resp 20 16 18 16 B/P (MAP) 105/54 (71) 94/52 (66) Pulse Ox 96 95 O2 Delivery Room Air Room Air Room Air Room Air 03/06/19 03/06/19 03/06/19 03/06/19 03:00 07:00 07:44 09:01 Temp 97.9 98.0 97.9 98.0 Pulse 40 20 Resp 16 18 16 16 B/P (MAP) 86/46 (59) 86/36 (53) Pulse Ox 95 94 O2 Delivery Room Air Room Air Room Air Room Air Intake and Output 03/05/19 03/05/19 03/06/19 15:00 23:00 07:00 Intake Total 1530 ml 480 ml Output Total 70 ml Balance 1460 ml 480 ml KAREN SON MD Mar 06, 2019 09:54
[2019-03-06 10:06] LABS: % BANDS 2 % (0-9); % LYMPHS 12 % (24-48); % MONOS 1 % (0-10); % SEGS 85 % (35-66); PLT ESTIMATE ADEQUATE (ADEQUATE)
--- NOTE | 2019-03-06 10:23 | NUR ---
SW following for discharge planning. Chart reviewed, discussed with RN. Pt had surgery yesterday, per RN no SW needs. RN anticipates discharge home with self care today (03/06/19). SW will continue to follow should any discharge needs arise.
[2019-03-06 11:00] VITALS: BP 88/43
[2019-03-06] MEDS ORDERED: oxyCODONE/APAP 5/325 1 TAB TABLET PO PRN (13:15)
[2019-03-06] MEDS: oxyCODONE IR 5 MG TABLET PO PRN (14:39)
[2019-03-06 15:00] VITALS: BP 86/30
--- NOTE | 2019-03-06 18:00 | PDOC3 ---
Discharge Summary Date of Admission: Mar 05, 2019 Date of Discharge: Mar 06, 2019 Follow-Up: 3-5 days Admitting Diagnosis comment: discharge dx Assessment/Plan 1. 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 3. SEVERE Hypokalemia now 3.2 PLAn: reg diet < pain med, IVF PPI IV Kcl PO once post Op oral k 40 meq now 28 min pt exam, chart review d/c planning , > 50% of time spent with exam, chart review, pt care coordination Vitals Vitals Vital Signs Date Time Temp Pulse Resp B/P (MAP) Pulse Ox O2 Delivery O2 Flow Rate FiO2 03/06/19 09:01 16 Room Air 03/06/19 07:00 98.0 20 86/36 (53) 94 98.0 03/05/19 19:35 98.0 Physical Exam General: Alert, Oriented X3, Cooperative, No acute distress Heart: Regular rate, Normal S1, No murmurs Abdomen: Soft, Other (lap dressings dry ) Extremities: No clubbing, No cyanosis Skin: No rashes Brief Hospital Course Ms. Boyle is a 33 old [sex] who presented with [ acute appendicitis] CONDITION AT DISCHARGE: Improved Discharge Medications Current Medications Sodium Chloride 1,000 ml @ 100 mls/hr Q10H IV Last administered on 03/05/19at 15:04; Start 03/05/19 at 15:04; Stop 03/05/19 at 15:31; Status DC Ondansetron HCl (Zofran) 4 mg PRN Q6HRS PRN IV NAUSEA/VOMITING Last administered on 03/06/19at 14:38; Start 03/05/19 at 15:15 Prochlorperazine Edisylate (Compazine) 10 mg PRN Q6HRS PRN IV NAUSEA/VOMITING; Start 03/05/19 at 15:15 Oxycodone HCl (Roxicodone) 5 mg PRN Q3HRS PRN PO BREAKTHROUGH PAIN Last administered on 03/06/19at 14:39; Start 03/05/19 at 15:15 Morphine Sulfate (Morphine Sulfate) 2 mg PRN Q2HR PRN IV PAIN Last administered on 03/05/19at 15:52; Start 03/05/19 at 15:15 Acetaminophen (Tylenol) 650 mg PRN Q6HRS PRN PO Headaches, Temp > 101.5F; Start 03/05/19 at 15:15 Zolpidem Tartrate (Ambien) 5 mg PRN QHS PRN PO INSOMNIA; Start 03/05/19 at 15:15 Potassium Chloride/Dextrose/ Sod Cl 1,000 ml @ 75 mls/hr [id number] IV ; Start 03/05/19 at 15:30; Stop 03/05/19 at 15:33; Status DC Potassium Chloride (Klor-Con) 40 meq BIDWMEALS PO Last administered on 03/06/19at 07:38; Start 03/05/19 at 17:00; Stop 03/06/19 at 12:35; Status DC Potassium Chloride/Dextrose/ Sod Cl 1,000 ml @ 75 mls/hr [id number] IV ; Start 03/05/19 at 15:30; Status UNV Potassium Chloride/Dextrose/ Sod Cl 1,000 ml @ 75 mls/hr [id number] IV Last administered on 03/06/19at 06:10; Start 03/05/19 at 16:00 Influenza Virus Vaccine Quadrival (Afluria Quad 2019-20 (3yr Up) Syringe) 0.5 ml ONCE ONCE VAX IM Last administered on 03/06/19at 10:55; Start 03/05/19 at 15:45; Stop 03/05/19 at 15:46; Status DC Ondansetron HCl (Zofran) 4 mg STK-MED ONCE .ROUTE ; Start 03/05/19 at 16:01; Stop 03/05/19 at 16:02; Status DC Lidocaine HCl (Lidocaine Pf 2% Vial) 5 ml STK-MED ONCE .ROUTE ; Start 03/05/19 at 16:02; Stop 03/05/19 at 16:02; Status DC Propofol 20 ml @ As Directed STK-MED ONCE IV ; Start 03/05/19 at 16:02; Stop 03/05/19 at 16:02; Status DC Ondansetron HCl (Zofran) 4 mg PRN Q6HRS PRN IV NAUSEA/VOMITING; Start 03/05/19 at 16:15; Stop 03/06/19 at 16:14; Status DC Fentanyl Citrate (Fentanyl 2ml Vial) 25 mcg PRN Q5MIN PRN IV MILD PAIN 1-3 Last administered on 03/05/19at 18:27; Start 03/05/19 at 16:15; Stop 03/06/19 at 16:14; Status DC Fentanyl Citrate (Fentanyl 2ml Vial) 50 mcg PRN Q5MIN PRN IV MODERATE TO SEVERE PAIN; Start 03/05/19 at 16:15; Stop 03/06/19 at 16:14; Status DC Morphine Sulfate (Morphine Sulfate) 1 mg PRN Q10MIN PRN IV SEVERE PAIN 7-10; Start 03/05/19 at 16:15; Stop 03/06/19 at 16:14; Status DC Ringer's Solution 1,000 ml @ 30 mls/hr Q24H IV Last administered on 03/05/19at 16:47; Start 03/05/19 at 16:05; Stop 03/06/19 at 04:16; Status DC Hydromorphone HCl (Dilaudid) 0.5 mg PRN Q10MIN PRN IV SEV PAIN, Second choice; Start 03/05/19 at 16:15; Stop 03/06/19 at 16:14; Status DC Prochlorperazine Edisylate (Compazine) 5 mg PACU PRN PRN IV NAUSEA, MRX1 Last administered on 03/05/19at 18:14; Start 03/05/19 at 16:15; Stop 03/06/19 at 16:14; Status DC Bupivacaine HCl (Sensorcaine Mpf 0.5%) 30 ml STK-MED ONCE .ROUTE Last administered on 03/05/19at 17:50; Start 03/05/19 at 16:24; Stop 03/05/19 at 16:25; Status DC Succinylcholine Chloride (Anectine) 200 mg STK-MED ONCE .ROUTE ; Start 03/05/19 at 16:26; Stop 03/05/19 at 16:27; Status DC Rocuronium [place] (Zemuron) 50 mg STK-MED ONCE .ROUTE ; Start 03/05/19 at 16:59; Stop 03/05/19 at 17:00; Status DC Fentanyl Citrate (Fentanyl 2ml Vial) 100 mcg STK-MED ONCE .ROUTE ; Start 03/05/19 at 17:14; Stop 03/05/19 at 17:15; Status DC Neostigmine Methylsulfate (Neostigmine Methylsulfate) 5 mg STK-MED ONCE .ROUTE ; Start 03/05/19 at 17:23; Stop 03/05/19 at 17:23; Status DC Glycopyrrolate (Robinul) 1 mg STK-MED ONCE .ROUTE ; Start 03/05/19 at 17:23; Stop 03/05/19 at 17:23; Status DC Propofol 20 ml @ As Directed STK-MED ONCE IV ; Start 03/05/19 at 17:23; Stop 03/05/19 at 17:23; Status DC Phenylephrine HCl (PHENYLEPHRINE in 0.9% NACL PF) 1 mg STK-MED ONCE IV ; Start 03/05/19 at 17:23; Stop 03/05/19 at 17:23; Status DC Sevoflurane (Ultane) 60 ml STK-MED ONCE IH ; Start 03/05/19 at 17:47; Stop 03/05/19 at 17:48; Status DC Oxycodone/ Acetaminophen (Percocet 5/325) 1 tab PRN Q4HRS PRN PO MILD PAIN 1-3; Start 03/05/19 at 18:00 Oxycodone/ Acetaminophen (Percocet 5/325) 2 tab PRN Q4HRS PRN PO MODERATE PAIN, SEVERE PAIN Last administered on 03/06/19at 17:40; Start 03/05/19 at 18:15 Dexamethasone Sodium Phosphate (Decadron) 20 mg STK-MED ONCE .ROUTE ; Start 03/05/19 at 18:31; Stop 03/05/19 at 18:31; Status DC Bupivacaine HCl (Sensorcaine Mpf 0.5%) 30 ml STK-MED ONCE .ROUTE ; Start 03/05/19 at 18:31; Stop 03/05/19 at 18:32; Status DC Lidocaine HCl (Xylocaine-Mpf 1% 2ml Vial) 2 ml STK-MED ONCE .ROUTE ; Start 03/05/19 at 18:31; Stop 03/05/19 at 18:32; Status DC Potassium Chloride (Klor-Con) 40 meq 1X ONCE PO Last administered on 03/06/19at 06:06; Start 03/06/19 at 05:45; Stop 03/06/19 at 05:46; Status DC Potassium Chloride (Klor-Con) 40 meq TIDWMEALS PO Last administered on 03/06/19at 15:46; Start 03/06/19 at 12:45 Oxycodone/ Acetaminophen (Percocet 5/325) 1 tab PRN Q4HRS PRN PO MILD PAIN 1-3; Start 03/06/19 at 13:15; Status UNV Potassium Chloride (Klor-Con) 40 meq 1X ONCE PO Last administered on 03/06/19at 13:45; Start 03/06/19 at 14:00; Stop 03/06/19 at 14:01; Status DC Potassium Chloride (Klor-Con) 20 meq 1X ONCE PO Last administered on 03/06/19at 15:46; Start 03/06/19 at 16:00; Stop 03/06/19 at 16:01; Status DC Active Scripts Active Percocet 5-325 Mg Tablet (Oxycodone/Acetaminophen) 1 Each Tablet 1 Tab PO PRN Q4HRS PRN Reported Potassium Cl 25 Meq Tab Eff (Pot Chloride/Pot Bicarb/Cit Ac) 25 Meq Tablet.eff 40 Meq PO TID Vital Signs Vital Signs Date Time Temp Pulse Resp B/P (MAP) Pulse Ox O2 Delivery O2 Flow Rate FiO2 03/06/19 17:40 16 Room Air 03/06/19 15:00 97.6 70 86/30 (48) 95 97.6 03/05/19 19:35 98.0 Labs Laboratory Tests Test 03/06/19 04:00 03/06/19 13:10 03/06/19 17:10 White Blood Count 10.6 x10^3/uL (4.0-11.0) Red Blood Count 4.65 x10^6/uL (3.50-5.40) Hemoglobin 14.2 g/dL (12.0-15.5) Hematocrit 39.3 % (36.0-47.0) Mean Corpuscular Volume 84 fL (79-100) Mean Corpuscular Hemoglobin 31 pg (25-35) Mean Corpuscular Hemoglobin Concent 36 g/dL (31-37) Red Cell Distribution Width 12.8 % (11.5-14.5) Platelet Count 325 x10^3/uL (140-400) Neutrophils (%) (Auto) 89 % (31-73) Lymphocytes (%) (Auto) 8 % (24-48) Monocytes (%) (Auto) 3 % (0-9) Eosinophils (%) (Auto) 0 % (0-3) Basophils (%) (Auto) 0 % (0-3) Neutrophils # (Auto) 9.4 x10^3/uL (1.8-7.7) Lymphocytes # (Auto) 0.8 x10^3/uL (1.0-4.8) Monocytes # (Auto) 0.3 x10^3/uL (0.0-1.1) Eosinophils # (Auto) 0.0 x10^3/uL (0.0-0.7) Basophils # (Auto) 0.0 x10^3/uL (0.0-0.2) Segmented Neutrophils % 85 % (35-66) Band Neutrophils % 2 % (0-9) Lymphocytes % 12 % (24-48) Monocytes % 1 % (0-10) Platelet Estimate Adequate (ADEQUATE) Prothrombin Time 13.8 SEC (11.7-14.0) Prothromb Time International Ratio 1.1 (0.8-1.1) Sodium Level 141 mmol/L (136-145) Potassium Level 2.4 mmol/L (3.5-5.1) 2.5 mmol/L (3.5-5.1) 3.2 mmol/L (3.5-5.1) Chloride Level 101 mmol/L (98-107) Carbon Dioxide Level 31 mmol/L (21-32) Anion Gap 9 (6-14) Blood Urea Nitrogen 7 mg/dL (7-20) Creatinine 0.6 mg/dL (0.6-1.0) Estimated GFR (Cockcroft-Gault) 115.9 Glucose Level 161 mg/dL (70-99) Calcium Level 9.0 mg/dL (8.5-10.1) Laboratory Tests Test 03/06/19 04:00 03/06/19 13:10 03/06/19 17:10 White Blood Count 10.6 x10^3/uL (4.0-11.0) Red Blood Count 4.65 x10^6/uL (3.50-5.40) Hemoglobin 14.2 g/dL (12.0-15.5) Hematocrit 39.3 % (36.0-47.0) Mean Corpuscular Volume 84 fL (79-100) Mean Corpuscular Hemoglobin 31 pg (25-35) Mean Corpuscular Hemoglobin Concent 36 g/dL (31-37) Red Cell Distribution Width 12.8 % (11.5-14.5) Platelet Count 325 x10^3/uL (140-400) Neutrophils (%) (Auto) 89 % (31-73) Lymphocytes (%) (Auto) 8 % (24-48) Monocytes (%) (Auto) 3 % (0-9) Eosinophils (%) (Auto) 0 % (0-3) Basophils (%) (Auto) 0 % (0-3) Neutrophils # (Auto) 9.4 x10^3/uL (1.8-7.7) Lymphocytes # (Auto) 0.8 x10^3/uL (1.0-4.8) Monocytes # (Auto) 0.3 x10^3/uL (0.0-1.1) Eosinophils # (Auto) 0.0 x10^3/uL (0.0-0.7) Basophils # (Auto) 0.0 x10^3/uL (0.0-0.2) Segmented Neutrophils % 85 % (35-66) Band Neutrophils % 2 % (0-9) Lymphocytes % 12 % (24-48) Monocytes % 1 % (0-10) Platelet Estimate Adequate (ADEQUATE) Prothrombin Time 13.8 SEC (11.7-14.0) Prothromb Time International Ratio 1.1 (0.8-1.1) Sodium Level 141 mmol/L (136-145) Potassium Level 2.4 mmol/L (3.5-5.1) 2.5 mmol/L (3.5-5.1) 3.2 mmol/L (3.5-5.1) Chloride Level 101 mmol/L (98-107) Carbon Dioxide Level 31 mmol/L (21-32) Anion Gap 9 (6-14) Blood Urea Nitrogen 7 mg/dL (7-20) Creatinine 0.6 mg/dL (0.6-1.0) Estimated GFR (Cockcroft-Gault) 115.9 Glucose Level 161 mg/dL (70-99) Calcium Level 9.0 mg/dL (8.5-10.1) Allergies Allergies Coded Allergies Type Severity Reaction Last Updated Verified ibuprofen Allergy Severe 06/27/18 No Disposition/Orders: D/C to Home Patient Instructions d/c planning 28 min KAREN SON MD Mar 06, 2019 18:00
--- NOTE | 2019-03-06 18:25 | NUR ---
Discharge instructions and belongings reviewed with patient, verbalized understanding. Patient was escorted out via wheelchair by ALFONSO.
--- NOTE | 2019-03-07 17:06 | PATHOLOGY ---
[facility] Accession Number: [id number] . 01 Material submitted: . appendix - APPENDIX . 01 Clinical history: . Acute appendicitis . 02 Diagnosis: Appendix, laparoscopic appendectomy: - Acute appendicitis with serosal exudate. LBQ 03/07/2019 1548 Local . 02 Comment: There is no evidence of rupture. (JPM/db; 03/07/2019) . 02 Electronically signed: . Elton Guajardo MD, Pathologist NPI- [id number] . 01 Gross description: . Received in formalin, labeled "Tamar, Trinh, appendix", is an intact appendix (8.5 cm length x 0.7 cm diameter) and attached mesoappendix (2.8 x 0.7 x 0.5 cm). The proximal resection margin is closed by a linear staple line 1.8 cm with an average 0.2 cm width. The staple line and the adjacent serosa is inked black. The serosa is arellano-brown focally hemorrhagic and with no perforation. The lumen dilated and filled with dark brown hemorrhagic material and no discrete fecalith. The wall has an average thickness of 0.2 cm. The mahendra-appendiceal soft tissue has a yellow cut surface. Representatively submitted in A1. ([facility]; 03/06/2019) [facility] 03/06/2019 2015 Local . 02 Pathologist provided ICD-10: K35.80 . 02 CPT . 713906 Specimen Comment: A courtesy copy of this report has been sent to Specimen Comment: [phone], , . Specimen Comment: Report sent to ,DR MATA / DR SOLTYS Performed at: 01 [facility] [place] [id number] [facility] [address], [place], [place] [id number] MD Ric Quintero MD Phone: [phone] Performed at: 02 [facility] [address] [place] [id number] MD Elton Guajardo MD Phone: [phone]
== END 2019-03-06 18:29 | disposition home or self-care (01) | DRG 343 ==
LOC: 4 NORTH 14:40
PROVIDERS: ADMIT Internal Medicine; ATTEND Internal Medicine
PROC: 0DTJ4ZZ Resection of Appendix, Percutaneous Endoscopic Approach (ICD-10-PCS; principal; 2019-03-05 16:45)
DX: K35.80 Unspecified acute appendicitis (principal); D25.9 Leiomyoma of uterus, unspecified; E87.6 Hypokalemia; Z88.6 Allergy status to analgesic agent
CPT/HCPCS: 36415; 80048; 84132; 85007; 85025; 85610; 90471; 90686; A7015; J0330; J0780; J1100; J2001; J2270; J2370; J2405; J2704; J2710; J3010; J3490; J7030; J7042; J7120; G0378